=== PATIENT | male | born 1985 | race Caucasian/White ===

== ENCOUNTER 2018-09-06 19:51 | Inpatient (IN) | payer OTHER ==
[~2018-09-06] VITALS: Ht 162.6 cm; Wt 68.5 kg
[2018-09-06 19:52] VITALS: BP 181/76
[2018-09-06] MEDS ORDERED: NOHOMEMEDICATIONS (19:56)
[2018-09-06 20:51] LABS: ABSOLUTE NEUTROPHILS 13.1 thou/uL (1.4-8.2); BASOPHILS 0.1 % (0.0-2.0); HEMATOCRIT 46.6 % (42.0-52.0); HEMOGLOBIN 16.1 gm/dL (14.0-18.0); LYMPHOCYTES 7.1 % (24.0-44.0); MCH 31.4 pg (26.0-34.0); MCHC 34.5 g/dL (28.0-37.0); MONOCYTES 4.8 % (1.0-8.0); PLATELET COUNT 232 thou/uL (150-400); RBC 5.12 mil/uL (4.50-6.00); WBC 14.8 thou/uL (4.0-11.0)
[2018-09-06 21:03] LABS: ANION GAP 18 mmol/L (7-16); BUN 29 mg/dL (7-18); CALCIUM 9.2 mg/dL (8.5-10.1); CHLORIDE 99 mmol/L (98-107); CO2 18 mmol/L (21-32); CREATININE 1.2 mg/dL (0.7-1.3); GLUCOSE 120 mg/dL (74-106); POTASSIUM 4.7 mmol/L (3.5-5.1); SODIUM 135 mmol/L (136-145)
[2018-09-06 21:09] LABS: URINE BILIRUBIN NEGATIVE (Negative); URINE BLOOD 1+ (Negative); URINE CLARITY CLEAR; URINE COLOR YELLOW; URINE GLUCOSE-RANDOM* NEGATIVE (Negative); URINE KETONES 3+ (Negative); URINE LEUKOCYTES-REFLEX NEGATIVE (Negative); URINE NITRITE-REFLEX NEGATIVE (Negative); URINE PROTEIN (DIPSTICK) NEGATIVE (Negative); URINE SPECIFIC GRAVITY >= 1.030 (1.005-1.035); URINE UROBILINOGEN 0.2 E.U./dl (0.2-1.0)
[2018-09-06 21:09] LABS: ALBUMIN 4.9 g/dL (3.4-5.0); LIPASE 62 U/L (73-393); SGOT 58 U/L (15-37); SGPT 72 U/L (30-65); TOTAL BILIRUBIN 0.7 mg/dL (<0.1-1.0); TOTAL PROTEIN 9.2 g/dL (6.4-8.2); TROPONIN-I <0.06 ng/mL (<0.06)
[2018-09-06 21:16] LABS: SQUAMOUS 0-3 Few /LPF (0-3)
[2018-09-06 21:17] LABS: BACTERIA-REFLEX 1-9 Few /HPF (None Seen); CASTS None Seen /LPF (None Seen); CRYSTALS None Seen /LPF (None Seen); URINE RBC 3-10 Few /HPF (0-2); URINE WBC-REFLEX 0-5 Rare /HPF (0-5)
[2018-09-06 21:19] LABS: AMP/METHAMP Negative (Negative); BARBITURATES Negative (Negative); BENZODIAZEPINES Negative (Negative); COCAINE Negative (Negative); METHADONE Negative (Negative); OPIATES Negative (Negative); PCP Negative (Negative)
[2018-09-07] VITALS (7 sets, daily range): BP systolic 100–123; BP diastolic 48–80
--- NOTE | 2018-09-07 04:20 | NUR ---
PT ORIENTATED TO ROOM AND CALL LIGHT PT GIVEN MORPHINE AND TORADOL FOR PAIN PT RESTED FOR 2 HOURS FRIEND HELPED PROVIDE INFORMATION FOR PT.
--- NOTE | 2018-09-07 11:23 | NUR ---
TOWARDS POC PT A/O X4, VSS,AFEBRILE. AT BEDSIDE. PAIN MANAGED BY MEDS. NO CONCERNS VOICED, WILL CONTINUE TO MONITOR.
[2018-09-08 03:43] VITALS: BP 119/72
--- NOTE | 2018-09-08 06:00 | NUR ---
Pt. rested quietly at intervals during the night when checked on during frequent rounds. He c/o abdominal and back pain which he was jgiven pain med (see emar) with some relief noted. Up ad gisell to the bathroom. No c/o nausea.
--- NOTE | 2018-09-08 08:15 | EKG ---
[address] [place] [address] ELECTROCARDIOGRAM REPORT Name: LEATHAFOREST Room #: 456-P ADM IN M.R.#: [id number] ������������������ Admission: 09/06/18 ������������������ Attend Phys: Edgar Das MD Discharge: ������������������ Date of : 89 Report #: [id number] ����������������������������������������������������������������� [id number] THIS REPORT FOR: //name// [facility] ED Test Date: 2018-09-06 Test Time: 21:51:09 Pat Name: FOREST ZHANG Department: Room: 456 Gender: M [employer] Project Manager: FLORENCIO : 1985 Requested By: Abel Cruz Order Number: [id number] MD: Nathan Funes Measurements Intervals [place] Rate: 126 P: 71 IA: 143 QRS: 41 QRSD: 79 T: 19 QT: 295 QTc: 428 Interpretive Statements Sinus tachycardia Otherwise normal tracing No previous ECG available for comparison Electronically Signed On 09-08-2018 8:15:08 CDT by Nathan Funes [email or web address] ��������������������������������������������� <ELECTRONICALLY SIGNED> ���������������������������������������� By: Nathan Funes MD, [facility] ��������������������������������������������� 09/08/18 0815 [id number] 50 Nathan Funes MD, FACC /EPI
[2018-09-08 09:28] VITALS: BP 144/82
--- NOTE | 2018-09-08 09:59 | NUR ---
TOWARDS POC PT A/O X4, VSS, AFEBRILE, NO SOA, DENIES PAIN OF THIS MOMENT. NO CONCERNS VOICED, AT BEDSIDE. WILLC CONTINUE TO MONITOR.
[2018-09-08 15:26] LABS: CALCIUM 8.2 mg/dL (8.5-10.1); MAGNESIUM 1.9 mg/dL (1.8-2.4); POTASSIUM 3.3 mmol/L (3.5-5.1)
[2018-09-08 15:51] VITALS: BP 126/68
[2018-09-08 16:10] LABS: HEMATOCRIT 40.5 % (42.0-52.0); MCH 31.5 pg (26.0-34.0); MCHC 34.2 g/dL (28.0-37.0); MCV 92.3 fL (80.0-100.0); RBC 4.39 mil/uL (4.50-6.00); RDW 13.1 % (10.5-14.5); WBC 4.3 thou/uL (4.0-11.0)
[2018-09-08 16:16] LABS: HEMOGLOBIN 13.8 gm/dL (14.0-18.0)
[2018-09-08] MEDS ORDERED: CYCLOBENZAPRINE5 MG PO (16:58)
[2018-09-08 17:04] VITALS: BP 126/68
== END 2018-09-08 17:43 | disposition home or self-care (01) | DRG 552 ==
LOC: ER 19:51 → 4W 21:56 → EROBS 21:56 → 4W 09-07 01:13
PROVIDERS: Emergency Medicine; ADMIT Internal Medicine
DX: M54.16 Radiculopathy, lumbar region (principal); E86.0 Dehydration; R31.9 Hematuria, unspecified; Z87.442 Personal history of urinary calculi; Z28.21 Immunization not carried out because of patient refusal
CPT/HCPCS: 10045